=== PATIENT | male | born 1935 | race Caucasian/White ===

== ENCOUNTER → 2017-07-27 | Day surgery (SDC) | payer BC ==
[2017-07-17 15:19] VITALS: BMI 21.5
[~2017-07-27] MED LIST: Fentanyl 100 MCG/2 ML VIAL ONE; Heparin 10,000 UNITS/1 ML VIAL ONE; Isoproterenol 0.2 MG/1 ML AMP ONE; Lidocaine 1% (PF) 30 ML VIAL ONE; Morphine Sulfate 2 MG/ML SYRINGE SLOW IVP PRN; Ondansetron HCl/PF 4 MG/2 ML Vial IVP PRN; PHENYLEPHRINE-NS 100 MCG/ML 10 ML SYRINGE ONE; PROPOFOL 200 MG/20 ML VIAL ONE; Promethazine HCl 25 MG/ML VIAL SLOW IVP PRN; Propofol 500 MG/50 ML VIAL ONE
[2017-07-27 10:13] LABS: #Basophils 0.1 thou/uL (0.0-0.2); #Eosinphils 0.2 thou/uL (0.0-0.7); #Lymphocytes 2.2 thou/uL (1.20-3.40); #Monocytes 0.6 thou/uL (0.11-0.59); #Neutrophils 3.1 thou/uL (1.40-6.50); %Basophils 1.3 % (0.0-1.0); %Eosinophils 3.9 % (0.0-10.0); %Lymphocytes 35.8 % (21.0-51.0); %Monocytes 9.4 % (0.0-10.0); %Neutrophils 49.7 % (42.0-75.0); Hemoglobin 14.6 g/dL (14.0-18.0); Mean Corpuscular HGB CONC 32.6 g/dL (32.0-36.0); Mean Corpuscular Hemoglobin 31.2 pg (27.0-31.0); Mean Corpuscular Volume 95.6 fl (80.0-94.0); Mean Platelet Volume 8.3 fL (7.4-10.4); Platelet Count 187 thou/uL (130-400); RBC Distribution Width 12.5 % (11.5-14.5); Red Blood Cell (RBC) Count 4.67 mill/uL (4.70-6.10); White Blood Cell (WBC) Count 6.3 thou/uL (4.8-10.8)
[2017-07-27 10:25] LABS: PTT 28.6 SEC (22.9-36.1); Prothrombin Time 13.7 SEC (12.0-14.7)
[2017-07-27 10:30] LABS: Anion Gap 7 mmol/L (10-20); BUN (Urea Nitrogen) 11 mg/dL (8.4-25.7); Calc. Creatinine Clearance 75 mL/min (70-130); Calcium 8.8 mg/dL (7.8-10.44); Carbon Dioxide 28 mmol/L (23-31); Chloride 108 mmol/L (98-107); Estimated GFR-MDRD Greater than 90; Glucose 87 mg/dL (83-110); Potassium 3.9 mmol/L (3.5-5.1); Sodium 139 mmol/L (136-145)
--- NOTE | 2017-07-27 15:08 | OP ---
PROCEDURE: Comprehensive electrophysiology study. PROCEDURE DETAILS: The patient came to the EP lab in the postabsorptive state. Informed consent was obtained. A timeout was called. The tonsillar. PREOPERATIVE DIAGNOSIS: SVT. PROCEDURE DETAILS: The patient came to the EP lab in the post-procedure. SVT to the EP lab in the p ostabsorptive state. Informed consent was obtained. A timeout was called. The patient was sedated by a member, the Anesthesia staff. Once patient adequately sedated, the right and left femoral regio ns were prepped and draped in usual sterile fashion. Using modified Seldinger technique and with ult rasound guided access was obtained x2 in the right femoral vein and x2 in the left femoral vein, two 6 [place] sheaths were placed in both veins. Through the right femoral vein. High right atrial carl ter was advanced a CS catheter was advanced for left atrial pacing and recording aortic RV catheter a nd his catheter were advanced. Baseline intervals were as follows: Interval was 88 HV interval was 45, RI interval was 150 milliseconds, QRS of 97 milliseconds, QT interval was 412 milliseconds, rate interval was 1076 milliseconds. Pacing in the RV demonstrated VA conduction which was concentric VA block occurred at a cycle length of approximately 400 milliseconds. AV Wenckebach also occurred at 4 00 milliseconds. AV node erp was at 600 milliseconds with 3D premature isoproterenol was pacing was used pacing from the coronary sinus for left atrial pacing and recording, it was utilized for atrial pacing. The isoproterenol was infused and sequential boluses of 2 mcg and 4 mcg in order to induce a trial arrhythmias, no dual AV ray physiology was found and no atrial arrhythmias were induced other [place] short runs of nonsustained atrial fibrillation. Based on this, the catheters were removed, s heaths were removed and hemostasis obtained with manual pressure. The patient tolerated the procedur e well and was discharged from the EP lab in stable condition. POSTOPERATIVE DIAGNOSIS: SVT. CONCLUSIONS: 1. Normal AV intervals to sinus bradycardia. 2. No inducible atrial arrhythmias. RECOMMENDATIONS: The patient will be at bed rest and will be discharged later today and will follow up Dr. Go discussed the possibility of a permanent pacemaker with medical therapy.
--- NOTE | 2017-09-30 13:59 | EKG ---
Test Reason : POST EP STUDY Blood Pressure : / mmHG Vent. Rate : 052 BPM Atrial Rate : 052 BPM P-R Int : 158 ms QRS Dur : 094 ms QT Int : 476 ms P-R-T Axes : 023 -39 009 degrees QTc Int : 442 ms Sinus bradycardia with Premature atrial complexes Left axis deviation Moderate voltage criteria for LVH, may be normal variant Cannot rule out Inferior infarct , age undetermined Abnormal ECG Confirmed by HAILEE MORALES, RACHEL ([id number]) on 09/30/2017 1:58:33 PM Referred By: MICKI Confirmed By:RACHEL STEPHEN MD
== END ==
LOC: CCL 08:11
PROVIDERS: ATTEND Specialist
PROC: 02K83ZZ Map Conduction Mechanism, Percutaneous Approach (ICD-10-PCS; principal; 2017-07-27)
PROC: 02583ZZ Destruction of Conduction Mechanism, Percutaneous Approach (ICD-10-PCS; principal; 2017-07-27)
DX: I47.1 Supraventricular tachycardia (principal); I25.10 Atherosclerotic heart disease of native coronary artery without angina pectoris; I10 Essential (primary) hypertension; I35.0 Nonrheumatic aortic (valve) stenosis; N40.0 Benign prostatic hyperplasia without lower urinary tract symptoms; E78.5 Hyperlipidemia, unspecified; Z86.010 Personal history of colon polyps; Z87.891 Personal history of nicotine dependence; Z79.82 Long term (current) use of aspirin; Z79.01 Long term (current) use of anticoagulants; Z79.02 Long term (current) use of antithrombotics/antiplatelets; Z79.899 Other long term (current) drug therapy; Z88.0 Allergy status to penicillin; Z95.5 Presence of coronary angioplasty implant and graft; Z98.890 Other specified postprocedural states
CPT/HCPCS: 76942; 80048; 85025; 85610; 85730; 93005; 93010; 93609; 93621; 93623; 93653; C1730; C1769; J1644; J2001; J2704; J3010